=== PATIENT | male | born 1975 | race Two or more races ===

== ENCOUNTER 2019-08-03 01:16 | Emergency (ER) | payer SELFPAY ==
[~2019-08-03] VITALS: Ht 162.6 cm; Wt 61.2 kg
[~2019-08-03 01:16] MED LIST: HYDROCODON-ACE1 EA15 ORAL; IBUPROFEN600 MG ORAL
[2019-08-03 01:27] VITALS: BP 115/81
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
[2019-08-03 01:39] VITALS: BP 115/81
--- NOTE | 2019-08-03 01:39 | NUR ---
ED Nurse Note: Pt cleared by ERMD for discharge. DC instructions was given and explained to pt and verbalized understanding of teachings. All medical devices such as ID band removed. Pt is AAO x4, ambulatory and left with all personal belongings.
[2019-08-03] MEDS ORDERED: TYLENOL EXTRA500 MG ORAL (17:24)
== END 2019-08-03 01:39 | disposition home or self-care (01) ==
LOC: EMR 01:28
DX: R51 Headache (principal)
CPT/HCPCS: 99282

== ENCOUNTER 2019-08-03 15:57 | Emergency (ER) | payer SELFPAY ==
[~2019-08-03] VITALS: Ht 165.1 cm; Wt 72.6 kg
[2019-08-03 16:05] VITALS: BP 127/79
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
[2019-08-03] MEDS ORDERED: TYLENOL EXTRA500 MG ORAL (17:24)
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
[2019-08-03 17:27] VITALS: BP 135/70
--- NOTE | 2019-08-03 17:27 | NUR ---
ER DISCHARGE NOTE: Patient is cleared to be discharged per PA, pt is aox4, on room air, with stable vital signs. pt was given dc and prescription instructions, pt was able to verbalize understanding, pt id band removed. pt is able to ambulate with steady gait. pt took all belongings.
== END 2019-08-03 17:27 | disposition home or self-care (01) ==
LOC: EMR 17:22
DX: H11.32 Conjunctival hemorrhage, left eye (principal); S00.83XA Contusion of other part of head, initial encounter; Y09 Assault by unspecified means
CPT/HCPCS: 99282